=== PATIENT | male | born 1980 ===

== ENCOUNTER 2020-03-08 17:03 | Emergency (ER) | payer SELFPAY ==
--- NOTE | 2020-03-08 17:13 | ED.ANIMALBIT ---
HPI - Animal Bite General Chief Complaint: Animal Bite Stated Complaint: possible dog bite Time Seen by Provider: 03/08/20 17:18 Source: patient and RN notes reviewed Mode of arrival: ambulatory Limitations: no limitations History of Present Illness HPI narrative: 39-year-old male presents with concern for dog bite. 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 Denies any other wounds or injuries. Reports he is up-to-date on his tetanus vaccination. complaint: animal bite Related Data Home Medications Medication Instructions Recorded Confirmed No Home Medications 03/08/20 03/08/20 Allergies Allergy/AdvReac Type Severity Reaction Status Date / Time No Known Allergies Allergy Verified 03/08/20 17:18 Review of Systems Review of Systems: Narrative: CONSTITUTIONAL: Denies malaise, chills, sweats, or fever. CARDIOVASCULAR: Denies chest pain, palpitations RESPIRATORY: Denies cough or dyspnea. SKIN: Reports abrasion to the left posterior calf MUSCULOSKELETAL: Denies pain NEUROLOGIC: Denies numbness, weakness All systems reviewed & are unremarkable except as noted in HPI and below PMFSH Comments At time of signature, agree with nursing past medical, surgical, social and family history. There is no relevant family history pertinent to the presenting complaint Exam Narrative: Exam Narrative: GENERAL: Well-appearing, well-nourished, and in no acute distress. HEAD: Normocephalic EYES: PERRLA ENT: Mucous membranes moist. NECK: Supple. CHEST: No respiratory distress. Speaks in full sentences. HEART: Regular rate and rhythm. EXTREMITIES: Left lower leg has normal range of motion, no edema, normal strength and sensation. SKIN: Warm, dry, no rash. 2.5 cm superficial abrasion with scabbing noted to the posterior left calf; no surrounding erythema, edema, induration, drainage. NEURO: Alert and oriented x3. No focal deficits. Cranial nerves II through XII grossly intact PSYCH: Normal mood and affect Course Course Emergency Course: Patient is aware of diagnosis, understands and agrees to treatment plan. Anticipatory guidance given. Patient agrees to follow-up as directed and is aware of reasons to seek care at the emergency department. Portions of this record may have been created with voice recognition software Vital Signs Vital signs: Vital Signs Temperature 99.3 F 03/08/20 17:17 Pulse Rate 61 03/08/20 17:17 Respiratory Rate 18 03/08/20 17:17 Blood Pressure 117/66 03/08/20 17:17 Pulse Oximetry 100 03/08/20 17:17 Temperature 99.3 F 03/08/20 17:17 Pulse Rate 61 03/08/20 17:17 Respiratory Rate 18 03/08/20 17:17 Blood Pressure 117/66 03/08/20 17:17 Pulse Oximetry 100 03/08/20 17:17 Reviewed. MDM - Animal Bite MDM Narrative Medical decision making narrative: Exam findings show no acute concerns or changes; patient is non-toxic appearing and is in no distress. Patient is appropriate for outpatient treatment and follow-up. Differential Diagnosis Differential diagnosis: Likely bite by animal, cat bite, dog bite and rabies contact Critical Care Time Critical Care Time Critical Care Time: No Discharge Plan Discharge Clinical Impression: Dog bite Qualifiers: Encounter type: initial encounter Qualified Code(s): W54.0XXA - Bitten by dog, initial encounter Patient Disposition: Home, Self-Care Condition: Stable Instructions: Animal Bite (ED) Additional Instructions: 1) Please follow-up with your primary care doctor if you have any new symptoms or concerns. 2) If you have any worsening of symptoms or any other urgent concerns please go to the ER. 3) Please clean your wound twice daily with soap and water, apply antibiotic ointment twice daily and cover with bandage. 4) Please read and follow information included in discharge instructions. Prescriptions:
[2020-03-08 17:17] VITALS: BP 117/66; PULSE 61; RESP 18; TEMP 37.4; O2SAT 100
== END 2020-03-08 17:32 | disposition home or self-care (01) ==
PROVIDERS: Emergency Provider Nurse Practitioner
DX: S80.812A Abrasion, left lower leg, initial encounter (principal); W54.0XXA Bitten by dog, initial encounter; Y99.0 Civilian activity done for income or pay
CPT/HCPCS: 99202; G0463